=== PATIENT | female | born 1990 | race Two or more races ===

== ENCOUNTER 2024-08-24 18:18 | Inpatient (IN) | payer MEDICAID, OTHER ==
[~2024-08-24] VITALS: Ht 157.5 cm; Wt 80.7 kg
[2024-08-24 19:24] LABS: Hematocrit 30.6 % (36.0-46.0); Hemoglobin 10.1 g/dL (12.2-16.2); Mean Corpuscular Hemoglobin 30.6 pg (28.0-32.0); Mean Corpuscular Hgb Conc. 32.9 g/dL (32.0-36.0); Mean Corpuscular Volume 93.1 fL (80.0-100.0); Platelet Count (auto) 212 10^3/uL (140-450); Red Blood Cells 3.28 10^6/uL (4.0-5.20); White Blood Cell 23.5 10^3/uL (4.4-10.8)
[2024-08-24 19:28] LABS: Red Cell Distribution Width 25.4 % (11.8-14.3)
[2024-08-24 19:33] LABS: Basophils % (manual) 0 (0.0-2.0); Blast Cells 0; Eosinophils % (manual) 0 (0-7); Myelocytes % 0; Promyelocytes % 0; Reactive Lymphocytes 0
[2024-08-24 19:39] LABS: Urine Bacteria FEW /hpf (None Seen); Urine Blood Negative /uL (Negative); Urine Clarity Turbid (Clear); Urine Color Dark-Yellow (Yellow); Urine Mucus FEW (None Seen); Urine Protein, UAD TRACE (Negative); Urine Specific Gravity 1.025 (1.001-1.035); Urine Urobilinogen 2 mg/dL (Negative); Urine WBC 2 /hpf (0 - 5); Urine pH 5.5 (5.0-9.0)
[2024-08-24 19:52] LABS: Alanine Aminotransferase 16 U/L (7-40); Albumin 3.7 g/dL (3.2-4.8); Alkaline Phosphatase 482 U/L (46-116); Anion Gap 7 (5-15); Aspartate Aminotransferase 59 U/L (13-40); Calcium 8.3 mg/dL (8.7-10.4); Carbon Dioxide 21 mmol/L (20-31); Chloride 103 mmol/L (98-107); Glucose 108 mg/dL (74-106); Potassium 3.4 mmol/L (3.5-5.1); Sodium 131 mmol/L (136-145); Total Protein 7.6 g/dL (5.7-8.2)
[2024-08-24 19:53] LABS: Anisocytosis Moderate; Band Neutrophils % (manual) 12; Lymphocytes % (manual) 11 (10.0-50.0); Metamyelocytes % 2; Monocytes % (manual) 10 (0-12); Platelet Estimate Adequate
[2024-08-24 19:57] LABS: BUN/Creatinine Ratio 9.1 (10.0-20.0); Blood Urea Nitrogen < 5 mg/dL (9-23)
[2024-08-24 21:44] VITALS: PULSE 110; RESP 18; O2SAT 96
[2024-08-24] MEDS ORDERED: NITROGLYCERIN 0.4 MG SL TAB SL PRN (23:15)
[2024-08-24] MEDS ORDERED: HYDROcodone-ACET 5/325MG TAB PO PRN (23:15)
[2024-08-24] MEDS ORDERED: IBUPROFEN 600 MG TAB PO PRN (23:15)
[2024-08-24] MEDS ORDERED: MORPHINE SULFATE INJ 2 MG/ml SYRG IV PRN ×2 (23:15)
[2024-08-24] MEDS ORDERED: DOCUSATE SOD 100 MG CAP PO PRN (23:15)
[2024-08-24] MEDS ORDERED: ONDANSETRON HCL 4 MG/2 ML VIAL IV PRN (23:15)
[2024-08-24] MEDS: SODIUM CHLORIDE 0.9% 1,000 ML IV SCH (23:15)
[2024-08-25] MEDS: cefTRIAXone 1GM/50ML D5W 50 ML IV ONE (04:43)
[2024-08-25 05:20] LABS: Hematocrit 26.8 % (36.0-46.0); Hemoglobin 8.9 g/dL (12.2-16.2); Mean Corpuscular Volume 93.8 fL (80.0-100.0); Platelet Count (auto) 182 10^3/uL (140-450); Red Blood Cells 2.86 10^6/uL (4.0-5.20); White Blood Cell 15.9 10^3/uL (4.4-10.8)
[2024-08-25 05:34] LABS: Alanine Aminotransferase 14 U/L (7-40); Albumin 3.2 g/dL (3.2-4.8); Alkaline Phosphatase 406 U/L (46-116); Anion Gap 8 (5-15); Aspartate Aminotransferase 57 U/L (13-40); Bilirubin, Total 13.9 mg/dL (0.2-1.0); Calcium 7.9 mg/dL (8.7-10.4); Carbon Dioxide 22 mmol/L (20-31); Chloride 103 mmol/L (98-107); Glucose 81 mg/dL (74-106); Potassium 3.3 mmol/L (3.5-5.1); Sodium 133 mmol/L (136-145); Total Protein 6.5 g/dL (5.7-8.2)
[2024-08-25 05:37] LABS: BUN/Creatinine Ratio 10.4 (10.0-20.0); Blood Urea Nitrogen < 5 mg/dL (9-23)
[2024-08-25 05:39] LABS: Red Cell Distribution Width 25.4 % (11.8-14.3)
[2024-08-25 05:41] LABS: Basophils % (manual) 0 (0.0-2.0); Blast Cells 0; Promyelocytes % 0; Reactive Lymphocytes 0
[2024-08-25] MEDS: metroNIDAZOLE 500MG/100ML 100 ML IV SCH (06:18)
[2024-08-25 07:37] LABS: Band Neutrophils % (manual) 6; Eosinophils % (manual) 3 (0-7); Lymphocytes % (manual) 20 (10.0-50.0); Metamyelocytes % 1; Monocytes % (manual) 5 (0-12); Myelocytes % 1
[2024-08-25 07:39] LABS: Anisocytosis Moderate; Platelet Estimate Adequate; Target Cell FEW
[2024-08-25] MEDS: FAMOTIDINE (10MG/ML) 2ML VL IV SCH (07:49)
[2024-08-25] MEDS: LACTULOSE 20Gm/30ML SOLN PO SCH (07:49)
[2024-08-25 08:00] VITALS: PULSE 84; RESP 14; O2SAT 98
[2024-08-25] MEDS: POTASSIUM EFFERVESENT TAB 25 MEQ PO ONE (08:35)
[2024-08-25 15:52] LABS: COVID19 ANTIGEN SOFIA FIA NEGATIVE (NEGATIVE); Rapid Influenza A Negative (Negative); Rapid Influenza B Negative (Negative)
[2024-08-25 17:00] VITALS: BP 108/69; PULSE 100; RESP 20; TEMP 97.7; O2SAT 96
[2024-08-25] MEDS ORDERED: TEMAZEPAM 15 MG CAP PO PRN (19:00)
[2024-08-25 20:00] VITALS: PULSE 98; RESP 18
[2024-08-25 21:00] VITALS: BP 113/72; PULSE 103; RESP 20; TEMP 97.7; O2SAT 95
[2024-08-26] VITALS (8 sets, daily range): BP systolic 108–119; BP diastolic 70–75; PULSE 92–107; RESP 18–20; TEMP 97.5–98.5; O2SAT 94–99
[2024-08-26 06:13] LABS: Hematocrit 26.7 % (36.0-46.0); Hemoglobin 8.9 g/dL (12.2-16.2); Mean Corpuscular Hemoglobin 31.6 pg (28.0-32.0); Mean Corpuscular Hgb Conc. 33.3 g/dL (32.0-36.0); Mean Corpuscular Volume 94.9 fL (80.0-100.0); Platelet Count (auto) 176 10^3/uL (140-450); Red Blood Cells 2.81 10^6/uL (4.0-5.20); White Blood Cell 15.7 10^3/uL (4.4-10.8)
[2024-08-26 06:22] LABS: Band Neutrophils % (manual) 0; Basophils % (manual) 0 (0.0-2.0); Blast Cells 0; Metamyelocytes % 0; Myelocytes % 0; Promyelocytes % 0; Reactive Lymphocytes 0; Red Cell Distribution Width 25.3 % (11.8-14.3)
[2024-08-26 06:24] LABS: Anion Gap 9 (5-15); Carbon Dioxide 21 mmol/L (20-31); Chloride 105 mmol/L (98-107); Potassium 3.8 mmol/L (3.5-5.1); Sodium 135 mmol/L (136-145)
[2024-08-26 06:25] LABS: Calcium 7.8 mg/dL (8.7-10.4)
[2024-08-26 06:30] LABS: Glucose 75 mg/dL (74-106)
[2024-08-26 06:33] LABS: Blood Urea Nitrogen < 5 mg/dL (9-23)
[2024-08-26 06:35] LABS: BUN/Creatinine Ratio 10.9 (10.0-20.0)
[2024-08-26 08:47] LABS: Hepatitis B Surface Antigen Negative (Negative)
[2024-08-26 09:08] LABS: Hepatitis A Ab IgM Negative; Hepatitis B Core IgM Negative
[2024-08-26 09:09] LABS: Eosinophils % (manual) 3 (0-7); Lymphocytes % (manual) 11 (10.0-50.0); Monocytes % (manual) 12 (0-12)
[2024-08-26 09:09] LABS: Hepatitis C Antibody Negative (Negative)
[2024-08-26 09:10] LABS: Platelet Estimate Adequate
[2024-08-26] MEDS: cefTRIAXone 1GM/50ML D5W 50 ML IV SCH (09:46)
[2024-08-26 13:42] LABS: INR 1.44 (0.9-1.15); Prothrombin Time 14.9 sec (9.3-11.8)
[2024-08-27 01:00] VITALS: BP 114/78; PULSE 102; RESP 16; TEMP 99.2; O2SAT 96
[2024-08-27 05:00] VITALS: BP 110/73; PULSE 99; RESP 18; TEMP 98.4; O2SAT 99
[2024-08-27 07:01] LABS: Hematocrit 27.2 % (36.0-46.0); Hemoglobin 8.8 g/dL (12.2-16.2); Mean Corpuscular Hemoglobin 30.5 pg (28.0-32.0); Mean Corpuscular Hgb Conc. 32.2 g/dL (32.0-36.0); Mean Corpuscular Volume 94.7 fL (80.0-100.0); Platelet Count (auto) 188 10^3/uL (140-450); Red Blood Cells 2.87 10^6/uL (4.0-5.20); White Blood Cell 18.7 10^3/uL (4.4-10.8)
[2024-08-27 07:18] LABS: Alanine Aminotransferase 17 U/L (7-40); Albumin 2.8 g/dL (3.2-4.8); Alkaline Phosphatase 388 U/L (46-116); Anion Gap 8 (5-15); Aspartate Aminotransferase 70 U/L (13-40); Bilirubin, Total 13.7 mg/dL (0.2-1.0); Calcium 7.9 mg/dL (8.7-10.4); Carbon Dioxide 21 mmol/L (20-31); Chloride 107 mmol/L (98-107); Glucose 79 mg/dL (74-106); Potassium 3.3 mmol/L (3.5-5.1); Sodium 136 mmol/L (136-145); Total Protein 5.9 g/dL (5.7-8.2)
[2024-08-27 07:24] LABS: Basophils % (manual) 0 (0.0-2.0); Blast Cells 0; Metamyelocytes % 0; Myelocytes % 0; Promyelocytes % 0; Reactive Lymphocytes 0
[2024-08-27 07:29] LABS: Blood Urea Nitrogen < 5 mg/dL (9-23)
[2024-08-27] MEDS ORDERED: POTASSIUM EFFERVESENT TAB 25 MEQ GT ONE (07:45)
[2024-08-27 09:00] VITALS: BP 111/77; PULSE 98; RESP 20; TEMP 97.8; O2SAT 95
[2024-08-27] MEDS: POTASSIUM EFFERVESENT TAB 25 MEQ PO ONE (10:15)
[2024-08-27 10:34] LABS: Band Neutrophils % (manual) 7; Eosinophils % (manual) 3 (0-7); Lymphocytes % (manual) 10 (10.0-50.0); Monocytes % (manual) 5 (0-12); Platelet Estimate Adequate
[2024-08-27 13:00] VITALS: BP 105/70; PULSE 101; RESP 20; TEMP 98.2; O2SAT 97
[2024-08-27 17:00] VITALS: BP 122/75; PULSE 107; RESP 18; TEMP 98.5; O2SAT 97
[2024-08-27 21:00] VITALS: BP 112/78; PULSE 107; RESP 20; TEMP 98.3; O2SAT 97
[2024-08-28] VITALS (8 sets, daily range): BP systolic 109–124; BP diastolic 67–78; PULSE 98–110; RESP 16–21; TEMP 97.9–98.7; O2SAT 94–99
[2024-08-28 05:35] LABS: Alanine Aminotransferase 13 U/L (7-40); Albumin 3.1 g/dL (3.2-4.8); Alkaline Phosphatase 389 U/L (46-116); Anion Gap 7 (5-15); Aspartate Aminotransferase 66 U/L (13-40); Calcium 7.9 mg/dL (8.7-10.4); Carbon Dioxide 22 mmol/L (20-31); Chloride 106 mmol/L (98-107); Glucose 82 mg/dL (74-106); Potassium 3.5 mmol/L (3.5-5.1); Sodium 135 mmol/L (136-145)
[2024-08-28 05:36] LABS: Bilirubin, Total 14.6 mg/dL (0.2-1.0); Total Protein 6.4 g/dL (5.7-8.2)
[2024-08-28 05:38] LABS: Hematocrit 29.6 % (36.0-46.0); Hemoglobin 9.4 g/dL (12.2-16.2); Mean Corpuscular Hemoglobin 30.1 pg (28.0-32.0); Mean Corpuscular Hgb Conc. 31.8 g/dL (32.0-36.0); Mean Corpuscular Volume 94.6 fL (80.0-100.0); Platelet Count (auto) 194 10^3/uL (140-450); Red Blood Cells 3.13 10^6/uL (4.0-5.20); White Blood Cell 20.7 10^3/uL (4.4-10.8)
[2024-08-28 05:40] LABS: Red Cell Distribution Width 26.1 % (11.8-14.3)
[2024-08-28 05:41] LABS: Basophils % (manual) 0 (0.0-2.0); Blast Cells 0; Metamyelocytes % 0; Myelocytes % 0; Promyelocytes % 0; Reactive Lymphocytes 0
[2024-08-28 06:10] LABS: BUN/Creatinine Ratio 10.2 (10.0-20.0); Blood Urea Nitrogen < 5 mg/dL (9-23)
[2024-08-28 08:25] LABS: Band Neutrophils % (manual) 7; Eosinophils % (manual) 2 (0-7); Lymphocytes % (manual) 10 (10.0-50.0); Monocytes % (manual) 3 (0-12); Platelet Estimate Adequate
[2024-08-28 12:35] LABS: INR 1.54 (0.9-1.15); Prothrombin Time 15.8 sec (9.3-11.8)
[2024-08-28] MEDS ORDERED: VANCOMYCIN PER PHARMACY 0 MG IV SCH (14:30)
[2024-08-28] MEDS: PIPERACILLIN-TAZOB 3.375GM 100 ML IV SCH (18:49)
[2024-08-28] MEDS ORDERED: VANCOMYCIN 1.25GM/250ML 250 ML IV SCH (19:00)
[2024-08-29] MEDS: VANCOMYCIN 1.25GM/250ML 250 ML IV SCH (00:32)
[2024-08-29 00:40] VITALS: BP 114/76; PULSE 110; RESP 16; TEMP 98.2; O2SAT 96
[2024-08-29] MEDS: PIPERACILLIN-TAZOB 3.375GM 100 ML IV SCH (03:24)
[2024-08-29 04:40] VITALS: BP 115/77; PULSE 105; RESP 16; TEMP 97.9; O2SAT 95
[2024-08-29 08:52] LABS: Basophils # (auto) 0.1 10 ^3/uL (0-0.2); Basophils % (auto) 0.3 % (0.0-2.0); Eosinophils # (auto) 0.2 10 ^3/uL (0-0.8); Eosinophils % (auto) 0.9 % (0.0-7.0); Hematocrit 29.2 % (36.0-46.0); Hemoglobin 9.1 g/dL (12.2-16.2); Lymphocytes % (auto) 30.1 % (10.0-50.0); Mean Corpuscular Hgb Conc. 31.1 g/dL (32.0-36.0); Mean Corpuscular Volume 96.5 fL (80.0-100.0); Monocytes # (auto) 0.8 10 ^3/uL (0-1.3); Monocytes % (auto) 4.2 % (0.0-12.0); Neutrophils # (auto) 12.8 10 ^3/uL (1.6-8.6); Neutrophils % (auto) 64.5 % (37.0-80.0); Nucleated Red Blood Cells % 0.1 %; Platelet Count (auto) 191 10^3/uL (140-450); Red Blood Cells 3.03 10^6/uL (4.0-5.20); Red Cell Distribution Width 26.2 % (11.8-14.3); White Blood Cell 19.8 10^3/uL (4.4-10.8)
[2024-08-29 09:10] VITALS: BP 94/61; PULSE 98; RESP 16; TEMP 98.2; O2SAT 96
[2024-08-29 09:31] LABS: Alanine Aminotransferase 12 U/L (7-40); Alkaline Phosphatase 383 U/L (46-116); Anion Gap 11 (5-15); Aspartate Aminotransferase 64 U/L (13-40); Calcium 7.9 mg/dL (8.7-10.4); Carbon Dioxide 20 mmol/L (20-31); Chloride 104 mmol/L (98-107); Glucose 80 mg/dL (74-106); Potassium 3.5 mmol/L (3.5-5.1); Sodium 135 mmol/L (136-145); Total Protein 6.8 g/dL (5.7-8.2)
[2024-08-29 09:35] LABS: BUN/Creatinine Ratio 10.2 (10.0-20.0); Blood Urea Nitrogen < 5 mg/dL (9-23)
[2024-08-29] MEDS: predniSONE 20 MG TAB PO SCH (10:41)
[2024-08-29 12:09] VITALS: BP 114/73; PULSE 100; RESP 20; TEMP 98.6; O2SAT 95
[2024-08-29] MEDS ORDERED: METH4PAK PO (13:35)
[2024-08-29] MEDS ORDERED: [UNRECOGNIZED DRUG - CODE] PO (13:38)
[2024-08-29] MEDS ORDERED: MET500T PO (13:38)
[2024-08-29] MEDS ORDERED: URSO300C2 PO (13:38)
[2024-08-29] MEDS ORDERED: URSODIOL 300 MG CAP PO SCH (22:00)
== END 2024-08-29 16:15 | disposition home or self-care (01) | DRG 720 ==
LOC: EDBD 18:18 → ER 18:18 → TELE 23:11 → TELE-CENTR 08-25 15:33 → CENTRAL 08-26 16:24
PROVIDERS: ADMIT Internal Medicine; ATTEND Emergency Medicine
DX: A41.50 Gram-negative sepsis, unspecified (principal); J15.69 Pneumonia due to other Gram-negative bacteria; D68.9 Coagulation defect, unspecified; K65.2 Spontaneous bacterial peritonitis; J15.9 Unspecified bacterial pneumonia; E87.1 Hypo-osmolality and hyponatremia; D63.8 Anemia in other chronic diseases classified elsewhere; Z20.822 Contact with and (suspected) exposure to COVID-19; K70.31 Alcoholic cirrhosis of liver with ascites; E87.8 Other disorders of electrolyte and fluid balance, not elsewhere classified; K70.11 Alcoholic hepatitis with ascites; E87.6 Hypokalemia; F10.10 Alcohol abuse, uncomplicated; Y90.9 Presence of alcohol in blood, level not specified; E66.01 Morbid (severe) obesity due to excess calories; E80.6 Other disorders of bilirubin metabolism; A09 Infectious gastroenteritis and colitis, unspecified; F12.10 Cannabis abuse, uncomplicated; R74.01 Elevation of levels of liver transaminase levels; Z68.41 Body mass index [BMI] 40.0-44.9, adult
CPT/HCPCS: 36415; 71045; 74176; 76705; 80048; 80053; 80074; 81001; 81025; 82140; 82248; 82270; 82565; 83605; 83615; 83690; 84439; 84443; 85007; 85025; 85027; 85048; 85610; 87040; 87045; 87086; 87426; 87427; 87493; 87804; 99291; G0378; J2543; J3490

== ENCOUNTER → 2025-02-26 | Outpatient (CLI) | payer MEDICAID ==
[~2025-02-26] MED LIST: MET500T PO; METH4PAK PO; URSO300C2 PO; [UNRECOGNIZED DRUG - CODE] PO
[2025-02-26 10:18] LABS: Beta HCG, Quantitative 0.7 mIU/mL (1.5-4.2)
[2025-02-26 10:21] LABS: Thyroid Stimulating Hormone 3.41 uIU/mL (0.55-4.78)
[2025-02-26 10:39] LABS: Follicle Stimulating Hormone 10.26 IU/L (SEE BELOW)
== END | disposition home or self-care (01) ==
LOC: LAB 09:39
PROVIDERS: ATTEND Obstetrics & Gynecology
DX: N93.9 Abnormal uterine and vaginal bleeding, unspecified (principal)
CPT/HCPCS: 36415; 82670; 83001; 83002; 83036; 84403; 84443; 84702

== ENCOUNTER → 2025-07-18 | Outpatient (CLI) | payer MEDICAID ==
[2025-07-18 09:44] LABS: Hematocrit 37.7 % (36.0-46.0); Hemoglobin 12.6 g/dL (12.2-16.2); Mean Corpuscular Hemoglobin 27.4 pg (28.0-32.0); Mean Corpuscular Volume 82.2 fL (80.0-100.0); Nucleated Red Blood Cells % 0.1 %
[2025-07-18 09:58] LABS: INR 1.11 (0.9-1.15); Prothrombin Time 11.6 sec (9.3-11.8)
[2025-07-18 10:13] LABS: Alanine Aminotransferase 29 U/L (7-40); Albumin 4.4 g/dL (3.2-4.8); Anion Gap 6 (5-15); BUN/Creatinine Ratio 7.9 (10.0-20.0); Bilirubin, Total 0.7 mg/dL (0.2-1.0); Calcium 8.9 mg/dL (8.7-10.4); Carbon Dioxide 24 mmol/L (20-31); Glucose 98 mg/dL (74-106); Potassium 4.3 mmol/L (3.5-5.1); Sodium 141 mmol/L (136-145); Total Protein 8.0 g/dL (5.7-8.2)
[2025-07-18 10:16] LABS: Alkaline Phosphatase 274 U/L (46-116); Blood Urea Nitrogen 6 mg/dL (9-23); Chloride 111 mmol/L (98-107)
[2025-07-18 10:56] LABS: Hepatitis B Surface Antigen Negative (Negative); Hepatitis C Antibody Negative (Negative)
[2025-07-19 12:07] LABS: Anti-Nuclear Antibody Direct Negative (Negative)
== END | disposition home or self-care (01) ==
LOC: LAB 09:19
PROVIDERS: ATTEND Internal Medicine Gastroenterology
DX: K74.60 Unspecified cirrhosis of liver (principal); R94.5 Abnormal results of liver function studies
CPT/HCPCS: 36415; 80053; 82105; 82140; 82728; 85025; 85610; 86038; 86803; 87340